=== PATIENT | male | born 1980 | race Caucasian/White ===

== ENCOUNTER 2023-03-28 17:48 | Emergency (ER) | payer OTHER ==
[2023-03-28 18:14] VITALS: BP 103/65; PULSE 100; RESP 16; TEMP 99.5; BMI 24.1
== END 2023-03-28 19:00 | disposition home or self-care (01) ==
LOC: FER 17:48 → SUPCPDRO 17:48 → FER 19:00
PROC: 0J990ZZ Drainage of Buttock Subcutaneous Tissue and Fascia, Open Approach (ICD-10-PCS; principal; 2023-03-28)
DX: L02.31 Cutaneous abscess of buttock (principal); M79.10 Myalgia, unspecified site; R22.2 Localized swelling, mass and lump, trunk
CPT/HCPCS: 10060; 99284-25

== ENCOUNTER 2024-02-23 21:49 | Emergency (ER) | payer OTHER ==
[2024-02-23 21:55] VITALS: BP 131/69; PULSE 70; RESP 18; TEMP 98.3; BMI 56.5
[2024-02-23] MEDS ORDERED: TERBUTALINE SULFATE 1 MG/1 ML VIAL SQ ONE ×3 (22:40→23:17)
[2024-02-23] MEDS: TERBUTALINE SULFATE 1 MG/1 ML VIAL SQ ONE ×2 (22:51→23:24)
[2024-02-23] MEDS ORDERED: ALBUTEROL SO4 0.5 % INH SOLN 2.5 MG/0.5 ML VIAL.NEB. NEB ONE (23:13)
== END 2024-02-24 02:35 | disposition short-term general hospital (02) ==
LOC: JER 21:49
PROC: 3E023GC Introduction of Other Therapeutic Substance into Muscle, Percutaneous Approach (ICD-10-PCS; principal; 2024-02-23)
PROC: 3E023GC Introduction of Other Therapeutic Substance into Muscle, Percutaneous Approach (ICD-10-PCS; 2024-02-23)
DX: N48.33 Priapism, drug-induced (principal)
CPT/HCPCS: 99285-25